=== PATIENT | female | born 1955 | race Native Hawaiian/Other Pacific Islander ===

== ENCOUNTER 2022-10-29 11:23 | Emergency (ER) | payer MEDICARE, BC, OTHER ==
[~2022-10-29] VITALS: Ht 160 cm; Wt 52.2 kg
[2022-10-29] MEDS ORDERED: IBUPROFEN 800 MG TABLET PO ONE (12:00)
[2022-10-29] MEDS ORDERED: IBUPROFEN 800 MG TABLET ONE (12:14)
[2022-10-29] MEDS ORDERED: CYCL5TAB PO (12:50)
[2022-10-29] MEDS ORDERED: IBUP-1957 PO (12:50)
[2022-10-29 13:00] VITALS: BP 128/68; TEMP 98; O2SAT 98
== END 2022-10-29 13:01 | disposition home or self-care (01) ==
LOC: ER 11:23
DX: S16.1XXA Strain of muscle, fascia and tendon at neck level, initial encounter (principal); S20.219A Contusion of unspecified front wall of thorax, initial encounter; S80.02XA Contusion of left knee, initial encounter; E78.5 Hyperlipidemia, unspecified; V43.52XA Car driver injured in collision with other type car in traffic accident, initial encounter; Y93.89 Activity, other specified; Y92.410 Unspecified street and highway as the place of occurrence of the external cause; Y99.8 Other external cause status
CPT/HCPCS: 71046; 72125; 93005; A4663